=== PATIENT | female | born 1975 | race Hispanic/Latino ===

== ENCOUNTER 2022-11-07 15:07 | Emergency (ER) | payer OTHER, SELFPAY | END 2022-11-07 17:20 | disposition home or self-care (01) | LOC: EXPCOLL 21:04 | PROVIDERS: Emergency Provider Nurse Practitioner Family; PCP Physician Assistant | DX: S50.12XA Contusion of left forearm, initial encounter (principal); J02.9 Acute pharyngitis, unspecified; I10 Essential (primary) hypertension; T14.90XA Injury, unspecified, initial encounter | CPT/HCPCS: 87081; 87880; 99213; G0463 ==